=== PATIENT | male | born 1940 | race African-American/Black ===

== ENCOUNTER 2022-08-19 21:23 | Inpatient (IN) | payer OTHER ==
[2022-08-19 22:49] VITALS: BMI 18.3
[2022-08-20] MEDS ORDERED: POLYETHYLENE GLYCOL (HEALTHYLAX) 3350 17 GM PACKET PO PRN (01:45)
[2022-08-20] MEDS ORDERED: BISMUTH SUBSALICYLATE 524 MG/30 ML PO PRN (01:45)
[2022-08-20] MEDS ORDERED: DICYCLOMINE HCL 10 MG CAPSULE PO PRN (01:45)
[2022-08-20] MEDS ORDERED: NALOXONE HCL 0.4 MG/ML VIAL IM PRN (01:45)
[2022-08-20] MEDS ORDERED: IBUPROFEN 400 MG TABLET (FP) PO PRN (01:45)
[2022-08-20] MEDS ORDERED: MAG HYDROX/AL HYDROX/SIMETH 30 ML UNIT-DOSE CUP PO PRN (01:45)
[2022-08-20] MEDS ORDERED: IBUPROFEN 600 MG TABLET (FP) PO PRN (01:45)
[2022-08-20] MEDS ORDERED: LOPERAMIDE HCL 2 MG CAPSULE PO PRN (01:45)
[2022-08-20] MEDS ORDERED: ACETAMINOPHEN 325 MG TABLET (FP) PO PRN (01:45)
[2022-08-20] MEDS ORDERED: BENZONATATE 200 MG CAPSULE PO PRN (01:45)
[2022-08-20] MEDS ORDERED: ONDANSETRON *ODT* 4 MG TABLET SL PRN (01:45)
[2022-08-20] MEDS ORDERED: NICOTINE 10 MG CARTRIDGE (INHALER) IH PRN (01:45)
[2022-08-20] MEDS ORDERED: MAGNESIUM HYDROX 2400MG/30ML ORAL SUSPENSION 30 ML CUP PO PRN (01:45)
[2022-08-20] MEDS ORDERED: NALOXONE HCL (KLOXXADO) 8 MG SPRAY NS PRN (01:45)
[2022-08-20] MEDS: BENZOCAINE/MENTHOL (CHLORASEPTIC ) LOZENGE MM PRN (04:12)
[2022-08-20] MEDS: METHOCARBAMOL 500 MG TABLET PO PRN (04:12)
[2022-08-20] MEDS ORDERED: ALBUTEROL SO4 HFA INHALER IH PRN (10:39)
[2022-08-20] MEDS ORDERED: methaDONE HCL 10 MG TABLET (FOR DETOX USE ONLY) PO ONE (10:45)
[2022-08-20] MEDS: PRENATAL VITAMINS W/ FOLIC ACID TABLET (FP) PO SCH (11:00)
[2022-08-20] MEDS: amLODIPine BESYLATE 5 MG TABLET (FP) PO SCH (11:03)
[2022-08-20] MEDS: guaiFENesin 600 MG TABLET.ER (FP) PO PRN (13:49)
[2022-08-20] MEDS: cloNIDine HCL 0.1 MG TABLET PO PRN (21:26)
[2022-08-20] MEDS: THIAMINE HCL 100 MG TABLET (FP) PO SCH (21:26)
[2022-08-20] MEDS: MELATONIN 5 MG TABLETS PO SCH (22:07)
[2022-08-21] MEDS: PRENATAL VITAMINS W/ FOLIC ACID TABLET (FP) PO SCH (10:44)
[2022-08-21] MEDS: amLODIPine BESYLATE 5 MG TABLET (FP) PO SCH (10:46)
[2022-08-21] MEDS: cloNIDine HCL 0.1 MG TABLET PO PRN (17:46)
[2022-08-21] MEDS: guaiFENesin 600 MG TABLET.ER (FP) PO PRN (18:12)
[2022-08-21] MEDS: BENZOCAINE/MENTHOL (CHLORASEPTIC ) LOZENGE MM PRN (18:13)
[2022-08-21] MEDS: THIAMINE HCL 100 MG TABLET (FP) PO SCH (22:27)
[2022-08-21] MEDS: MELATONIN 5 MG TABLETS PO SCH (22:27)
[2022-08-21] MEDS: METHOCARBAMOL 500 MG TABLET PO PRN (22:29)
[2022-08-22] MEDS: ALBUTEROL SO4 HFA INHALER IH PRN ×2 (01:38→12:17)
[2022-08-22] MEDS: cloNIDine HCL 0.1 MG TABLET PO PRN (01:41)
[2022-08-22] MEDS ORDERED: methaDONE HCL 10 MG TABLET (FOR DETOX USE ONLY) PO ONE (10:00)
[2022-08-22] MEDS: PRENATAL VITAMINS W/ FOLIC ACID TABLET (FP) PO SCH (10:39)
[2022-08-22] MEDS: amLODIPine BESYLATE 5 MG TABLET (FP) PO SCH (10:39)
[2022-08-22 10:49] LABS: HEMATOCRIT 29.2 % (35.4-49); HEMOGLOBIN 9.5 GM/dL (11.7-16.9); MCH 29.8 pg (25.7-33.7); MCHC 32.6 g/dl (32.0-35.9); MEAN CELL VOLUME 91.4 fl (80-96); MEAN PLT VOLUME 9.8 fl (7.5-11.1); PLATELET COUNT 161 10^3/uL (134-434); RDW 16.3 % (11.9-15.9)
[2022-08-22 10:56] LABS: POTASSIUM 4.5 mmol/L (3.5-5.1)
[2022-08-22 10:59] LABS: CALCIUM 9.8 mg/dL (8.5-10.1)
[2022-08-22 11:00] LABS: BLOOD UREA NITROGEN 20.7 mg/dL (7-18)
[2022-08-22 11:03] LABS: CREATININE 1.1 mg/dL (0.55-1.3)
[2022-08-22 11:04] LABS: BILIRUBIN,TOTAL 0.2 mg/dL (0.2-1); TOT PROT 5.8 g/dl (6.4-8.2)
[2022-08-22] MEDS ORDERED: MIRTAZAPINE 15 MG TABLET (FP) PO SCH (22:00)
[2022-08-22] MEDS: MELATONIN 5 MG TABLETS PO SCH (22:33)
[2022-08-22] MEDS: THIAMINE HCL 100 MG TABLET (FP) PO SCH (22:35)
[2022-08-23] MEDS: METHOCARBAMOL 500 MG TABLET PO PRN ×2 (06:23→23:24)
[2022-08-23] MEDS: amLODIPine BESYLATE 5 MG TABLET (FP) PO SCH (10:32)
[2022-08-23] MEDS: PRENATAL VITAMINS W/ FOLIC ACID TABLET (FP) PO SCH (10:32)
[2022-08-23] MEDS: THIAMINE HCL 100 MG TABLET (FP) PO SCH (22:28)
[2022-08-23] MEDS: MELATONIN 5 MG TABLETS PO SCH ×2 (22:29→22:30)
[2022-08-23] MEDS: ALBUTEROL SO4 HFA INHALER IH PRN (23:24)
[2022-08-24] MEDS ORDERED: methaDONE HCL 10 MG TABLET (FOR DETOX USE ONLY) PO ONE (10:00)
[2022-08-24] MEDS: PRENATAL VITAMINS W/ FOLIC ACID TABLET (FP) PO SCH (10:32)
[2022-08-24] MEDS: amLODIPine BESYLATE 5 MG TABLET (FP) PO SCH (10:33)
[2022-08-24] MEDS: ALBUTEROL SO4 HFA INHALER IH PRN ×2 (15:07→23:17)
[2022-08-24] MEDS: LOSARTAN POTASSIUM 50 MG TABLET PO SCH (17:00)
[2022-08-24] MEDS: MELATONIN 5 MG TABLETS PO SCH (22:17)
[2022-08-24] MEDS: THIAMINE HCL 100 MG TABLET (FP) PO SCH (22:18)
[2022-08-25] MEDS: PRENATAL VITAMINS W/ FOLIC ACID TABLET (FP) PO SCH (10:10)
[2022-08-25] MEDS: amLODIPine BESYLATE 5 MG TABLET (FP) PO SCH (10:10)
[2022-08-25] MEDS: LOSARTAN POTASSIUM 50 MG TABLET PO SCH (10:10)
[2022-08-25] MEDS: ALBUTEROL SO4 HFA INHALER IH PRN ×2 (10:12→18:22)
[2022-08-25 15:33] LABS: HEMATOCRIT 34.1 % (35.4-49); HEMOGLOBIN 11.1 GM/dL (11.7-16.9); MCH 30.2 pg (25.7-33.7); MCHC 32.6 g/dl (32.0-35.9); MEAN CELL VOLUME 92.7 fl (80-96); MEAN PLT VOLUME 10.2 fl (7.5-11.1); PLATELET COUNT 218 10^3/uL (134-434); RBC 3.68 M/mm3 (4.00-5.60)
[2022-08-25 15:42] LABS: WHITE BLOOD COUNT 34.5 K/mm3 (4.0-10.0)
[2022-08-25] MEDS ORDERED: cloNIDine HCL 0.1 MG TABLET PO ONE (16:00)
[2022-08-25 17:41] LABS: PH,URINE 7.5 (5.0-8.0); URINE APPEARANCE CLEAR; URINE BILIRUBIN NEGATIVE (NEGATIVE); URINE COLOR YELLOW; URINE GLUCOSE (UA) NEGATIVE (NEGATIVE); URINE KETONE NEGATIVE (NEGATIVE); URINE LEUK ESTERASE NEGATIVE (NEGATIVE); URINE NITRITE NEGATIVE (NEGATIVE); URINE PROTEIN NEGATIVE (NEGATIVE); URINE UROBILINOGEN 0.2 mg/dL (0.2-1.0)
[2022-08-25] MEDS: MELATONIN 5 MG TABLETS PO SCH (21:20)
[2022-08-25] MEDS: THIAMINE HCL 100 MG TABLET (FP) PO SCH (21:21)
[2022-08-26] MEDS: LOSARTAN POTASSIUM 50 MG TABLET PO SCH (10:02)
[2022-08-26] MEDS: amLODIPine BESYLATE 5 MG TABLET (FP) PO SCH (10:02)
[2022-08-26] MEDS: FERROUS SO4 325 MG TABLET (FP) PO SCH (10:02)
[2022-08-26] MEDS: PRENATAL VITAMINS W/ FOLIC ACID TABLET (FP) PO SCH (10:03)
[2022-08-26] MEDS: buPROPion HCL 100 MG TABLET PO SCH (14:11)
[2022-08-26] MEDS: MEGESTROL ACETATE 400 MG/10 ML UNIT DOSE CUP PO SCH (16:03)
[2022-08-26] MEDS: MIRTAZAPINE 15 MG TABLET (FP) PO SCH (21:18)
[2022-08-26] MEDS: THIAMINE HCL 100 MG TABLET (FP) PO SCH (21:18)
[2022-08-26] MEDS: MELATONIN 5 MG TABLETS PO SCH (21:20)
[2022-08-27] MEDS: LOSARTAN POTASSIUM 50 MG TABLET PO SCH (09:32)
[2022-08-27] MEDS: amLODIPine BESYLATE 5 MG TABLET (FP) PO SCH (09:32)
[2022-08-27] MEDS: MEGESTROL ACETATE 400 MG/10 ML UNIT DOSE CUP PO SCH (09:32)
[2022-08-27] MEDS: FERROUS SO4 325 MG TABLET (FP) PO SCH (09:32)
[2022-08-27] MEDS: PRENATAL VITAMINS W/ FOLIC ACID TABLET (FP) PO SCH (09:32)
[2022-08-27] MEDS: buPROPion HCL 100 MG TABLET PO SCH (09:32)
[2022-08-27] MEDS: hydrOXYzine PAMOATE 25 MG CAPSULE (FP) PO PRN ×2 (09:34→21:37)
[2022-08-27] MEDS ORDERED: SODIUM PHOSPHATE/NA BIPHOS 133 ML ENEMA RC PRN (12:59)
[2022-08-27] MEDS: DOCUSATE SODIUM 100 MG CAPSULE (FP) PO PRN (14:41)
[2022-08-27] MEDS: THIAMINE HCL 100 MG TABLET (FP) PO SCH (21:34)
[2022-08-27] MEDS: MIRTAZAPINE 15 MG TABLET (FP) PO SCH (21:35)
[2022-08-27] MEDS: MELATONIN 5 MG TABLETS PO SCH (21:36)
[2022-08-27] MEDS: cloNIDine HCL 0.1 MG TABLET PO PRN (21:38)
[2022-08-28] MEDS: PRENATAL VITAMINS W/ FOLIC ACID TABLET (FP) PO SCH (10:17)
[2022-08-28] MEDS: amLODIPine BESYLATE 5 MG TABLET (FP) PO SCH (10:18)
[2022-08-28] MEDS: FERROUS SO4 325 MG TABLET (FP) PO SCH (10:18)
[2022-08-28] MEDS: LOSARTAN POTASSIUM 50 MG TABLET PO SCH (10:18)
[2022-08-28] MEDS: MEGESTROL ACETATE 400 MG/10 ML UNIT DOSE CUP PO SCH (10:19)
[2022-08-28] MEDS: buPROPion HCL 100 MG TABLET PO SCH (10:19)
[2022-08-28] MEDS: ALBUTEROL SO4 HFA INHALER IH PRN (20:20)
[2022-08-28] MEDS: MELATONIN 5 MG TABLETS PO SCH (21:09)
[2022-08-28] MEDS: THIAMINE HCL 100 MG TABLET (FP) PO SCH (21:10)
[2022-08-28] MEDS: hydrOXYzine PAMOATE 25 MG CAPSULE (FP) PO PRN (21:11)
[2022-08-28] MEDS: MIRTAZAPINE 15 MG TABLET (FP) PO SCH (21:11)
[2022-08-28] MEDS: cloNIDine HCL 0.1 MG TABLET PO PRN (21:14)
[2022-08-29] MEDS: ALBUTEROL SO4 HFA INHALER IH PRN ×3 (06:27→21:31)
[2022-08-29] MEDS: buPROPion HCL 100 MG TABLET PO SCH (10:40)
[2022-08-29] MEDS: amLODIPine BESYLATE 5 MG TABLET (FP) PO SCH (10:40)
[2022-08-29] MEDS: LOSARTAN POTASSIUM 50 MG TABLET PO SCH (10:40)
[2022-08-29] MEDS: FERROUS SO4 325 MG TABLET (FP) PO SCH (10:40)
[2022-08-29] MEDS: PRENATAL VITAMINS W/ FOLIC ACID TABLET (FP) PO SCH (10:41)
[2022-08-29] MEDS: MEGESTROL ACETATE 400 MG/10 ML UNIT DOSE CUP PO SCH (10:41)
[2022-08-29] MEDS: hydrOXYzine PAMOATE 25 MG CAPSULE (FP) PO PRN ×2 (10:49→21:34)
[2022-08-29] MEDS: MIRTAZAPINE 15 MG TABLET (FP) PO SCH (21:31)
[2022-08-29] MEDS: THIAMINE HCL 100 MG TABLET (FP) PO SCH (21:31)
[2022-08-29] MEDS: MELATONIN 5 MG TABLETS PO SCH (21:33)
[2022-08-29] MEDS: cloNIDine HCL 0.1 MG TABLET PO PRN (21:34)
[2022-08-30] MEDS: hydrOXYzine PAMOATE 25 MG CAPSULE (FP) PO PRN ×2 (06:31→21:37)
[2022-08-30] MEDS: LOSARTAN POTASSIUM 50 MG TABLET PO SCH (11:14)
[2022-08-30] MEDS: amLODIPine BESYLATE 5 MG TABLET (FP) PO SCH (11:14)
[2022-08-30] MEDS: MEGESTROL ACETATE 400 MG/10 ML UNIT DOSE CUP PO SCH (11:15)
[2022-08-30] MEDS: PRENATAL VITAMINS W/ FOLIC ACID TABLET (FP) PO SCH (11:15)
[2022-08-30] MEDS: FERROUS SO4 325 MG TABLET (FP) PO SCH (11:15)
[2022-08-30] MEDS: DOCUSATE SODIUM 100 MG CAPSULE (FP) PO PRN (11:15)
[2022-08-30] MEDS: buPROPion HCL 100 MG TABLET PO SCH (11:16)
[2022-08-30] MEDS: ALBUTEROL SO4 HFA INHALER IH PRN ×2 (11:19→21:40)
[2022-08-30] MEDS: THIAMINE HCL 100 MG TABLET (FP) PO SCH (21:29)
[2022-08-30] MEDS: MIRTAZAPINE 15 MG TABLET (FP) PO SCH (21:29)
[2022-08-30] MEDS: cloNIDine HCL 0.1 MG TABLET PO PRN (21:37)
[2022-08-30] MEDS: MELATONIN 5 MG TABLETS PO SCH (21:54)
[2022-08-31] MEDS: LOSARTAN POTASSIUM 50 MG TABLET PO SCH (09:32)
[2022-08-31] MEDS: amLODIPine BESYLATE 5 MG TABLET (FP) PO SCH (09:32)
[2022-08-31] MEDS: PRENATAL VITAMINS W/ FOLIC ACID TABLET (FP) PO SCH (09:32)
[2022-08-31] MEDS: ALBUTEROL SO4 HFA INHALER IH PRN ×2 (09:32→21:38)
[2022-08-31] MEDS: FERROUS SO4 325 MG TABLET (FP) PO SCH (09:32)
[2022-08-31] MEDS: buPROPion HCL 100 MG TABLET PO SCH (09:33)
[2022-08-31] MEDS: MEGESTROL ACETATE 400 MG/10 ML UNIT DOSE CUP PO SCH (09:33)
[2022-08-31] MEDS: hydrOXYzine PAMOATE 25 MG CAPSULE (FP) PO PRN ×2 (09:55→21:38)
[2022-08-31] MEDS: THIAMINE HCL 100 MG TABLET (FP) PO SCH (21:38)
[2022-08-31] MEDS: cloNIDine HCL 0.1 MG TABLET PO PRN (21:38)
[2022-08-31] MEDS: MIRTAZAPINE 15 MG TABLET (FP) PO SCH (21:38)
[2022-08-31] MEDS: MELATONIN 5 MG TABLETS PO SCH (21:40)
[2022-09-01] MEDS: ALBUTEROL SO4 HFA INHALER IH PRN ×4 (07:50→17:55)
[2022-09-01] MEDS ORDERED: TUBERCULIN PPD 5 TU/0.1ML VIAL ID ONE ×2 (09:49→15:59)
[2022-09-01] MEDS: PRENATAL VITAMINS W/ FOLIC ACID TABLET (FP) PO SCH (09:56)
[2022-09-01] MEDS: LOSARTAN POTASSIUM 50 MG TABLET PO SCH (09:57)
[2022-09-01] MEDS: FERROUS SO4 325 MG TABLET (FP) PO SCH (09:57)
[2022-09-01] MEDS: amLODIPine BESYLATE 5 MG TABLET (FP) PO SCH (09:57)
[2022-09-01] MEDS: buPROPion HCL 100 MG TABLET PO SCH (09:57)
[2022-09-01] MEDS: MEGESTROL ACETATE 400 MG/10 ML UNIT DOSE CUP PO SCH (09:58)
[2022-09-01] MEDS: hydrOXYzine PAMOATE 25 MG CAPSULE (FP) PO PRN ×2 (09:58→17:10)
[2022-09-01] MEDS: MOMETASONE FUROATE 220 MCG/IH INHALER IH SCH ×2 (13:41→21:42)
[2022-09-01] MEDS: THIAMINE HCL 100 MG TABLET (FP) PO SCH (21:43)
[2022-09-01] MEDS: MIRTAZAPINE 15 MG TABLET (FP) PO SCH (21:43)
[2022-09-01] MEDS: cloNIDine HCL 0.1 MG TABLET PO PRN (21:53)
[2022-09-01] MEDS: MELATONIN 5 MG TABLETS PO SCH (22:51)
[2022-09-02] MEDS: hydrOXYzine PAMOATE 25 MG CAPSULE (FP) PO PRN ×3 (03:20→21:39)
[2022-09-02] MEDS: ALBUTEROL SO4 HFA INHALER IH PRN ×3 (03:20→18:54)
[2022-09-02] MEDS: MEGESTROL ACETATE 400 MG/10 ML UNIT DOSE CUP PO SCH (09:52)
[2022-09-02] MEDS: PRENATAL VITAMINS W/ FOLIC ACID TABLET (FP) PO SCH (09:52)
[2022-09-02] MEDS: buPROPion HCL 100 MG TABLET PO SCH (09:53)
[2022-09-02] MEDS: FERROUS SO4 325 MG TABLET (FP) PO SCH (09:53)
[2022-09-02] MEDS: LOSARTAN POTASSIUM 50 MG TABLET PO SCH (09:53)
[2022-09-02] MEDS: amLODIPine BESYLATE 5 MG TABLET (FP) PO SCH (09:53)
[2022-09-02] MEDS: POLYETHYLENE GLYCOL (HEALTHYLAX) 3350 17 GM PACKET PO SCH (09:54)
[2022-09-02] MEDS: MOMETASONE FUROATE 220 MCG/IH INHALER IH SCH ×2 (09:56→21:37)
[2022-09-02] MEDS: MELATONIN 5 MG TABLETS PO SCH (21:38)
[2022-09-02] MEDS: THIAMINE HCL 100 MG TABLET (FP) PO SCH (21:39)
[2022-09-02] MEDS: MIRTAZAPINE 15 MG TABLET (FP) PO SCH (21:39)
[2022-09-02] MEDS: cloNIDine HCL 0.1 MG TABLET PO PRN (21:41)
[2022-09-03] MEDS: ALBUTEROL SO4 HFA INHALER IH PRN ×3 (00:45→17:34)
[2022-09-03] MEDS: hydrOXYzine PAMOATE 25 MG CAPSULE (FP) PO PRN ×2 (06:16→21:19)
[2022-09-03] MEDS: cloNIDine HCL 0.1 MG TABLET PO PRN (06:16)
[2022-09-03] MEDS: LOSARTAN POTASSIUM 50 MG TABLET PO SCH (09:42)
[2022-09-03] MEDS: PRENATAL VITAMINS W/ FOLIC ACID TABLET (FP) PO SCH (09:42)
[2022-09-03] MEDS: buPROPion HCL 100 MG TABLET PO SCH (09:42)
[2022-09-03] MEDS: FERROUS SO4 325 MG TABLET (FP) PO SCH (09:42)
[2022-09-03] MEDS: amLODIPine BESYLATE 5 MG TABLET (FP) PO SCH (09:43)
[2022-09-03] MEDS: MEGESTROL ACETATE 400 MG/10 ML UNIT DOSE CUP PO SCH (09:43)
[2022-09-03] MEDS: MOMETASONE FUROATE 220 MCG/IH INHALER IH SCH ×2 (09:43→21:20)
[2022-09-03] MEDS: POLYETHYLENE GLYCOL (HEALTHYLAX) 3350 17 GM PACKET PO SCH (09:43)
[2022-09-03] MEDS ORDERED: LISINOPRIL 5 MG TABLET PO ONE (18:03)
[2022-09-03] MEDS ORDERED: ALBUTEROL SO4 2.5/IPRATROPIUM 0.5 INH SOL 3 ML VIAL.NEB. NEB ONE (19:23)
[2022-09-03] MEDS: MIRTAZAPINE 15 MG TABLET (FP) PO SCH (21:19)
[2022-09-03] MEDS: THIAMINE HCL 100 MG TABLET (FP) PO SCH (21:19)
[2022-09-03] MEDS: MELATONIN 5 MG TABLETS PO SCH (21:20)
[2022-09-04] MEDS: ALBUTEROL SO4 HFA INHALER IH PRN (03:52)
[2022-09-04] MEDS: ALBUTEROL SO4 0.083% IH SOL 2.5 MG/3 ML VIAL.NEB. NEB PRN (07:02)
[2022-09-04] MEDS: MOMETASONE FUROATE 220 MCG/IH INHALER IH SCH ×2 (09:09→21:17)
[2022-09-04] MEDS: buPROPion HCL 100 MG TABLET PO SCH (09:09)
[2022-09-04] MEDS: PRENATAL VITAMINS W/ FOLIC ACID TABLET (FP) PO SCH (09:09)
[2022-09-04] MEDS: amLODIPine BESYLATE 5 MG TABLET (FP) PO SCH (09:09)
[2022-09-04] MEDS: FERROUS SO4 325 MG TABLET (FP) PO SCH (09:09)
[2022-09-04] MEDS: LOSARTAN POTASSIUM 50 MG TABLET PO SCH (09:09)
[2022-09-04] MEDS: MEGESTROL ACETATE 400 MG/10 ML UNIT DOSE CUP PO SCH (09:09)
[2022-09-04] MEDS: POLYETHYLENE GLYCOL (HEALTHYLAX) 3350 17 GM PACKET PO SCH (09:11)
[2022-09-04] MEDS: hydrOXYzine PAMOATE 25 MG CAPSULE (FP) PO PRN ×2 (09:17→17:41)
[2022-09-04 11:51] LABS: HEMATOCRIT 27.5 % (35.4-49); HEMOGLOBIN 8.7 GM/dL (11.7-16.9); MCH 29.1 pg (25.7-33.7); MCHC 31.8 g/dl (32.0-35.9); MEAN CELL VOLUME 91.5 fl (80-96); MEAN PLT VOLUME 9.1 fl (7.5-11.1); PLATELET COUNT 280 10^3/uL (134-434); RBC 3.01 M/mm3 (4.00-5.60); RDW 16.6 % (11.9-15.9)
[2022-09-04 11:59] LABS: WHITE BLOOD COUNT 32.4 K/mm3 (4.0-10.0)
[2022-09-04] MEDS: MIRTAZAPINE 15 MG TABLET (FP) PO SCH (21:17)
[2022-09-04] MEDS: cloNIDine HCL 0.1 MG TABLET PO PRN (21:17)
[2022-09-04] MEDS: MELATONIN 5 MG TABLETS PO SCH (21:17)
[2022-09-04] MEDS: THIAMINE HCL 100 MG TABLET (FP) PO SCH (21:18)
[2022-09-05] MEDS: ALBUTEROL SO4 HFA INHALER IH PRN ×2 (01:28→14:24)
[2022-09-05] MEDS ORDERED: amLODIPine BESYLATE 5 MG TABLET (FP) PO SCH (06:00)
[2022-09-05] MEDS: hydrOXYzine PAMOATE 25 MG CAPSULE (FP) PO PRN ×2 (06:37→21:27)
[2022-09-05] MEDS: DOCUSATE SODIUM 100 MG CAPSULE (FP) PO PRN (06:38)
[2022-09-05] MEDS: cloNIDine HCL 0.1 MG TABLET PO PRN (07:22)
[2022-09-05] MEDS: FERROUS SO4 325 MG TABLET (FP) PO SCH (09:32)
[2022-09-05] MEDS: LOSARTAN POTASSIUM 50 MG TABLET PO SCH (09:32)
[2022-09-05] MEDS: MOMETASONE FUROATE 220 MCG/IH INHALER IH SCH ×2 (09:32→23:06)
[2022-09-05] MEDS: buPROPion HCL 100 MG TABLET PO SCH (09:33)
[2022-09-05] MEDS: PRENATAL VITAMINS W/ FOLIC ACID TABLET (FP) PO SCH (09:33)
[2022-09-05] MEDS: POLYETHYLENE GLYCOL (HEALTHYLAX) 3350 17 GM PACKET PO SCH (09:33)
[2022-09-05] MEDS: MEGESTROL ACETATE 400 MG/10 ML UNIT DOSE CUP PO SCH (09:33)
[2022-09-05] MEDS: ALBUTEROL SO4 0.083% IH SOL 2.5 MG/3 ML VIAL.NEB. NEB PRN ×2 (11:57→20:30)
[2022-09-05] MEDS: MIRTAZAPINE 30 MG TABLET PO SCH (21:24)
[2022-09-05] MEDS: THIAMINE HCL 100 MG TABLET (FP) PO SCH (21:24)
[2022-09-05] MEDS: MELATONIN 5 MG TABLETS PO SCH (21:25)
[2022-09-05] MEDS ORDERED: cloNIDine HCL 0.1 MG TABLET PO ONE (22:34)
[2022-09-06] MEDS: ALBUTEROL SO4 HFA INHALER IH PRN (00:13)
[2022-09-06] MEDS: amLODIPine BESYLATE 10 MG TABLET (FP) PO SCH (06:29)
[2022-09-06] MEDS: cloNIDine HCL 0.1 MG TABLET PO PRN (06:33)
[2022-09-06] MEDS: PRENATAL VITAMINS W/ FOLIC ACID TABLET (FP) PO SCH (10:03)
[2022-09-06] MEDS: MEGESTROL ACETATE 400 MG/10 ML UNIT DOSE CUP PO SCH (10:04)
[2022-09-06] MEDS: LOSARTAN POTASSIUM 50 MG TABLET PO SCH (10:04)
[2022-09-06] MEDS: buPROPion HCL 100 MG TABLET PO SCH (10:04)
[2022-09-06] MEDS: FERROUS SO4 325 MG TABLET (FP) PO SCH (10:04)
[2022-09-06] MEDS: MOMETASONE FUROATE 220 MCG/IH INHALER IH SCH ×2 (10:05→21:11)
[2022-09-06] MEDS: POLYETHYLENE GLYCOL (HEALTHYLAX) 3350 17 GM PACKET PO SCH (10:06)
[2022-09-06] MEDS: ALBUTEROL SO4 0.083% IH SOL 2.5 MG/3 ML VIAL.NEB. NEB PRN (13:55)
[2022-09-06] MEDS: hydrOXYzine PAMOATE 25 MG CAPSULE (FP) PO PRN (13:58)
[2022-09-06] MEDS: THIAMINE HCL 100 MG TABLET (FP) PO SCH (21:11)
[2022-09-06] MEDS: MIRTAZAPINE 30 MG TABLET PO SCH (21:11)
[2022-09-06] MEDS: MELATONIN 5 MG TABLETS PO SCH (21:12)
[2022-09-07] MEDS: ALBUTEROL SO4 HFA INHALER IH PRN ×3 (02:08→17:03)
[2022-09-07] MEDS: amLODIPine BESYLATE 10 MG TABLET (FP) PO SCH (06:25)
[2022-09-07] MEDS: cloNIDine HCL 0.1 MG TABLET PO PRN ×2 (06:25→21:05)
[2022-09-07] MEDS: PRENATAL VITAMINS W/ FOLIC ACID TABLET (FP) PO SCH (09:53)
[2022-09-07] MEDS: MOMETASONE FUROATE 220 MCG/IH INHALER IH SCH ×2 (09:53→21:03)
[2022-09-07] MEDS: buPROPion HCL 100 MG TABLET PO SCH (09:54)
[2022-09-07] MEDS: LOSARTAN POTASSIUM 50 MG TABLET PO SCH (09:54)
[2022-09-07] MEDS: FERROUS SO4 325 MG TABLET (FP) PO SCH (09:54)
[2022-09-07] MEDS: MEGESTROL ACETATE 400 MG/10 ML UNIT DOSE CUP PO SCH (09:55)
[2022-09-07] MEDS: POLYETHYLENE GLYCOL (HEALTHYLAX) 3350 17 GM PACKET PO SCH (09:55)
[2022-09-07] MEDS: hydrOXYzine PAMOATE 25 MG CAPSULE (FP) PO PRN ×2 (09:57→23:33)
[2022-09-07] MEDS: ALBUTEROL SO4 0.083% IH SOL 2.5 MG/3 ML VIAL.NEB. NEB PRN (15:39)
[2022-09-07] MEDS: THIAMINE HCL 100 MG TABLET (FP) PO SCH (21:03)
[2022-09-07] MEDS: MIRTAZAPINE 30 MG TABLET PO SCH (21:03)
[2022-09-07] MEDS: MELATONIN 5 MG TABLETS PO SCH (21:04)
[2022-09-08] MEDS: amLODIPine BESYLATE 10 MG TABLET (FP) PO SCH (06:21)
[2022-09-08] MEDS: hydrOXYzine PAMOATE 25 MG CAPSULE (FP) PO PRN ×2 (06:22→21:10)
[2022-09-08] MEDS: MOMETASONE FUROATE 220 MCG/IH INHALER IH SCH ×2 (09:51→21:09)
[2022-09-08] MEDS: PRENATAL VITAMINS W/ FOLIC ACID TABLET (FP) PO SCH (09:51)
[2022-09-08] MEDS: FERROUS SO4 325 MG TABLET (FP) PO SCH (09:51)
[2022-09-08] MEDS: LOSARTAN POTASSIUM 50 MG TABLET PO SCH (09:51)
[2022-09-08] MEDS: MEGESTROL ACETATE 400 MG/10 ML UNIT DOSE CUP PO SCH (09:53)
[2022-09-08] MEDS: buPROPion HCL 100 MG TABLET PO SCH (09:53)
[2022-09-08] MEDS: POLYETHYLENE GLYCOL (HEALTHYLAX) 3350 17 GM PACKET PO SCH (09:54)
[2022-09-08] MEDS: ALBUTEROL SO4 HFA INHALER IH PRN ×2 (12:26→19:26)
[2022-09-08] MEDS: ALBUTEROL SO4 0.083% IH SOL 2.5 MG/3 ML VIAL.NEB. NEB PRN (17:30)
[2022-09-08] MEDS: MIRTAZAPINE 30 MG TABLET PO SCH (21:08)
[2022-09-08] MEDS: THIAMINE HCL 100 MG TABLET (FP) PO SCH (21:08)
[2022-09-08] MEDS: cloNIDine HCL 0.1 MG TABLET PO PRN (21:09)
[2022-09-08] MEDS: MELATONIN 5 MG TABLETS PO SCH (21:10)
[2022-09-09] MEDS: ALBUTEROL SO4 HFA INHALER IH PRN ×2 (01:31→10:49)
[2022-09-09] MEDS: amLODIPine BESYLATE 10 MG TABLET (FP) PO SCH (07:13)
[2022-09-09] MEDS: guaiFENesin 200 MG/10 ML 10 ML UNIT-DOSE CUPS PO PRN (07:36)
[2022-09-09] MEDS: PRENATAL VITAMINS W/ FOLIC ACID TABLET (FP) PO SCH (09:46)
[2022-09-09] MEDS: MOMETASONE FUROATE 220 MCG/IH INHALER IH SCH ×2 (09:46→21:46)
[2022-09-09] MEDS: MEGESTROL ACETATE 400 MG/10 ML UNIT DOSE CUP PO SCH (09:47)
[2022-09-09] MEDS: FERROUS SO4 325 MG TABLET (FP) PO SCH (09:47)
[2022-09-09] MEDS: POLYETHYLENE GLYCOL (HEALTHYLAX) 3350 17 GM PACKET PO SCH (09:47)
[2022-09-09] MEDS: buPROPion HCL 100 MG TABLET PO SCH ×2 (09:51→13:28)
[2022-09-09] MEDS: LOSARTAN POTASSIUM 50 MG TABLET PO SCH (10:47)
[2022-09-09] MEDS: THIAMINE HCL 100 MG TABLET (FP) PO SCH (21:47)
[2022-09-09] MEDS: cloNIDine HCL 0.1 MG TABLET PO PRN (21:47)
[2022-09-09] MEDS: MIRTAZAPINE 30 MG TABLET PO SCH (21:47)
[2022-09-09] MEDS: MELATONIN 5 MG TABLETS PO SCH (21:50)
[2022-09-10] MEDS: ALBUTEROL SO4 HFA INHALER IH PRN ×2 (00:56→06:58)
[2022-09-10] MEDS: amLODIPine BESYLATE 10 MG TABLET (FP) PO SCH (06:56)
[2022-09-10] MEDS: hydrOXYzine PAMOATE 25 MG CAPSULE (FP) PO PRN ×2 (06:58→21:30)
[2022-09-10] MEDS: PRENATAL VITAMINS W/ FOLIC ACID TABLET (FP) PO SCH (10:23)
[2022-09-10] MEDS: buPROPion HCL 100 MG TABLET PO SCH ×2 (10:24→14:49)
[2022-09-10] MEDS: POLYETHYLENE GLYCOL (HEALTHYLAX) 3350 17 GM PACKET PO SCH (10:24)
[2022-09-10] MEDS: LOSARTAN POTASSIUM 50 MG TABLET PO SCH (10:24)
[2022-09-10] MEDS: MOMETASONE FUROATE 220 MCG/IH INHALER IH SCH ×2 (10:24→21:21)
[2022-09-10] MEDS: FERROUS SO4 325 MG TABLET (FP) PO SCH (10:25)
[2022-09-10] MEDS: MEGESTROL ACETATE 400 MG/10 ML UNIT DOSE CUP PO SCH (10:25)
[2022-09-10] MEDS: guaiFENesin 200 MG/10 ML 10 ML UNIT-DOSE CUPS PO PRN (10:30)
[2022-09-10] MEDS: ALBUTEROL SO4 0.083% IH SOL 2.5 MG/3 ML VIAL.NEB. NEB PRN (15:15)
[2022-09-10] MEDS: THIAMINE HCL 100 MG TABLET (FP) PO SCH (21:20)
[2022-09-10] MEDS: MIRTAZAPINE 30 MG TABLET PO SCH (21:20)
[2022-09-10] MEDS: MELATONIN 5 MG TABLETS PO SCH (21:20)
[2022-09-10] MEDS: cloNIDine HCL 0.1 MG TABLET PO PRN (21:29)
[2022-09-11] MEDS: ALBUTEROL SO4 HFA INHALER IH PRN ×2 (01:58→06:53)
[2022-09-11] MEDS: amLODIPine BESYLATE 10 MG TABLET (FP) PO SCH (06:53)
[2022-09-11] MEDS: LOSARTAN POTASSIUM 50 MG TABLET PO SCH (11:02)
[2022-09-11] MEDS: MOMETASONE FUROATE 220 MCG/IH INHALER IH SCH ×2 (11:04→21:27)
[2022-09-11] MEDS: MEGESTROL ACETATE 400 MG/10 ML UNIT DOSE CUP PO SCH (11:04)
[2022-09-11] MEDS: FERROUS SO4 325 MG TABLET (FP) PO SCH (11:05)
[2022-09-11] MEDS: buPROPion HCL 100 MG TABLET PO SCH ×2 (11:05→14:09)
[2022-09-11] MEDS: PRENATAL VITAMINS W/ FOLIC ACID TABLET (FP) PO SCH (11:05)
[2022-09-11] MEDS: POLYETHYLENE GLYCOL (HEALTHYLAX) 3350 17 GM PACKET PO SCH (11:05)
[2022-09-11] MEDS: MIRTAZAPINE 30 MG TABLET PO SCH (21:26)
[2022-09-11] MEDS: THIAMINE HCL 100 MG TABLET (FP) PO SCH (21:26)
[2022-09-11] MEDS: hydrOXYzine PAMOATE 25 MG CAPSULE (FP) PO PRN (21:27)
[2022-09-11] MEDS: MELATONIN 5 MG TABLETS PO SCH (21:28)
[2022-09-12] MEDS: amLODIPine BESYLATE 10 MG TABLET (FP) PO SCH (06:50)
[2022-09-12] MEDS: ALBUTEROL SO4 HFA INHALER IH PRN (06:51)
[2022-09-12] MEDS: hydrOXYzine PAMOATE 25 MG CAPSULE (FP) PO PRN (06:51)
[2022-09-12] MEDS: LOSARTAN POTASSIUM 50 MG TABLET PO SCH (12:11)
[2022-09-12] MEDS: FERROUS SO4 325 MG TABLET (FP) PO SCH (12:12)
[2022-09-12] MEDS: buPROPion HCL 100 MG TABLET PO SCH ×2 (12:12→16:01)
[2022-09-12] MEDS: POLYETHYLENE GLYCOL (HEALTHYLAX) 3350 17 GM PACKET PO SCH (12:12)
[2022-09-12] MEDS: MEGESTROL ACETATE 400 MG/10 ML UNIT DOSE CUP PO SCH (12:12)
[2022-09-12] MEDS: PRENATAL VITAMINS W/ FOLIC ACID TABLET (FP) PO SCH (12:12)
[2022-09-12] MEDS: MOMETASONE FUROATE 220 MCG/IH INHALER IH SCH ×2 (12:13→21:18)
[2022-09-12] MEDS: ALBUTEROL SO4 0.083% IH SOL 2.5 MG/3 ML VIAL.NEB. NEB PRN (17:29)
[2022-09-12] MEDS: THIAMINE HCL 100 MG TABLET (FP) PO SCH (21:18)
[2022-09-12] MEDS: MIRTAZAPINE 30 MG TABLET PO SCH (21:18)
[2022-09-12] MEDS: MELATONIN 5 MG TABLETS PO SCH (21:19)
[2022-09-13] MEDS: amLODIPine BESYLATE 10 MG TABLET (FP) PO SCH (06:47)
[2022-09-13] MEDS: PRENATAL VITAMINS W/ FOLIC ACID TABLET (FP) PO SCH (10:18)
[2022-09-13] MEDS: LOSARTAN POTASSIUM 50 MG TABLET PO SCH (10:18)
[2022-09-13] MEDS: FERROUS SO4 325 MG TABLET (FP) PO SCH (10:18)
[2022-09-13] MEDS: MOMETASONE FUROATE 220 MCG/IH INHALER IH SCH ×2 (10:19→22:02)
[2022-09-13] MEDS: POLYETHYLENE GLYCOL (HEALTHYLAX) 3350 17 GM PACKET PO SCH (10:19)
[2022-09-13] MEDS: buPROPion HCL 100 MG TABLET PO SCH ×2 (10:20→14:59)
[2022-09-13] MEDS: MEGESTROL ACETATE 400 MG/10 ML UNIT DOSE CUP PO SCH (10:20)
[2022-09-13] MEDS: ALBUTEROL SO4 HFA INHALER IH PRN (15:03)
[2022-09-13] MEDS: MELATONIN 5 MG TABLETS PO SCH (22:00)
[2022-09-13] MEDS: hydrOXYzine PAMOATE 25 MG CAPSULE (FP) PO PRN (22:00)
[2022-09-13] MEDS: cloNIDine HCL 0.1 MG TABLET PO PRN (22:00)
[2022-09-13] MEDS: MIRTAZAPINE 30 MG TABLET PO SCH (22:00)
[2022-09-13] MEDS: THIAMINE HCL 100 MG TABLET (FP) PO SCH (22:00)
[2022-09-14] MEDS: amLODIPine BESYLATE 10 MG TABLET (FP) PO SCH (07:07)
[2022-09-14] MEDS: LOSARTAN POTASSIUM 50 MG TABLET PO SCH (09:54)
[2022-09-14] MEDS: MOMETASONE FUROATE 220 MCG/IH INHALER IH SCH ×2 (09:54→21:42)
[2022-09-14] MEDS: PRENATAL VITAMINS W/ FOLIC ACID TABLET (FP) PO SCH (09:54)
[2022-09-14] MEDS: FERROUS SO4 325 MG TABLET (FP) PO SCH (09:54)
[2022-09-14] MEDS: MEGESTROL ACETATE 400 MG/10 ML UNIT DOSE CUP PO SCH (09:54)
[2022-09-14] MEDS: buPROPion HCL 100 MG TABLET PO SCH ×2 (09:55→15:25)
[2022-09-14] MEDS: POLYETHYLENE GLYCOL (HEALTHYLAX) 3350 17 GM PACKET PO SCH (09:56)
[2022-09-14] MEDS: ALBUTEROL SO4 HFA INHALER IH PRN (20:06)
[2022-09-14 20:16] VITALS: RESP 18; TEMP 97.8
[2022-09-14] MEDS: THIAMINE HCL 100 MG TABLET (FP) PO SCH (21:42)
[2022-09-14] MEDS: MELATONIN 5 MG TABLETS PO SCH (21:43)
[2022-09-14] MEDS: MIRTAZAPINE 30 MG TABLET PO SCH (21:43)
[2022-09-15] MEDS: amLODIPine BESYLATE 10 MG TABLET (FP) PO SCH (07:09)
[2022-09-15] MEDS: ALBUTEROL SO4 HFA INHALER IH PRN (07:55)
[2022-09-15 09:21] VITALS: BP 117/52; PULSE 73
[2022-09-15] MEDS: POLYETHYLENE GLYCOL (HEALTHYLAX) 3350 17 GM PACKET PO SCH (11:07)
[2022-09-15] MEDS: MOMETASONE FUROATE 220 MCG/IH INHALER IH SCH (11:08)
[2022-09-15] MEDS: LOSARTAN POTASSIUM 50 MG TABLET PO SCH (11:08)
[2022-09-15] MEDS: buPROPion HCL 100 MG TABLET PO SCH (11:09)
[2022-09-15] MEDS: MEGESTROL ACETATE 400 MG/10 ML UNIT DOSE CUP PO SCH (11:09)
[2022-09-15] MEDS: FERROUS SO4 325 MG TABLET (FP) PO SCH (11:09)
[2022-09-15] MEDS: PRENATAL VITAMINS W/ FOLIC ACID TABLET (FP) PO SCH (11:09)
== END 2022-09-15 11:45 | disposition other institution (70) | DRG 895 ==
LOC: YASAS 21:23 → Y3N 08-20 03:47 → Y5N 08-25 12:53
PROVIDERS: ADMIT Allergy & Immunology; ATTEND Psychiatry & Neurology Pain Medicine
PROC: HZ2ZZZZ Detoxification Services for Substance Abuse Treatment (ICD-10-PCS; 2022-08-20)
PROC: HZ42ZZZ Group Counseling for Substance Abuse Treatment, Cognitive-Behavioral (ICD-10-PCS; principal; 2022-08-25)
DX: F11.20 Opioid dependence, uncomplicated (principal); F14.20 Cocaine dependence, uncomplicated; Z68.1 Body mass index [BMI] 19.9 or less, adult; F17.210 Nicotine dependence, cigarettes, uncomplicated; F41.9 Anxiety disorder, unspecified; F32.A Depression, unspecified; I10 Essential (primary) hypertension; J44.9 Chronic obstructive pulmonary disease, unspecified; D64.9 Anemia, unspecified; D72.829 Elevated white blood cell count, unspecified; K59.00 Constipation, unspecified; R63.6 Underweight; Z86.59 Personal history of other mental and behavioral disorders; Z88.0 Allergy status to penicillin
CPT/HCPCS: 36415; 71045-TC-FY; 80053; 81003; 85027; 86780; 93005; 93010; 94640; C9803-CS; U0003; U0005